=== PATIENT | female | born 1950 | race Caucasian/White ===

== ENCOUNTER 2016-11-13 22:28 | Emergency (ER) | payer MEDICARE ==
[2016-11-13] MEDS ORDERED: DECADRON 10MG INJ. IV ONE (22:33)
[2016-11-13] MEDS ORDERED: EPINEPHRINE 1:1000 1 ML AMP ONE (22:34)
[2016-11-13] MEDS ORDERED: DECADRON 10MG INJ. ONE ×2 (22:37→22:38)
[2016-11-13] MEDS ORDERED: BUMEX 1 MG ONE (22:42)
[2016-11-13] MEDS ORDERED: Sodium Chloride 0.9% 1000 ML 1,000 ML ONE (22:42)
[2016-11-13] MEDS ORDERED: Sodium Chloride 0.9% 1000 ML 1,000 ML IV SCH (22:45)
[2016-11-13] MEDS ORDERED: Cardizem IV 50 MG/10 ML IV ONE ×2 (22:45→22:53)
[2016-11-13] MEDS ORDERED: BUMEX 1 MG IV STA (22:45)
[2016-11-13] MEDS ORDERED: CARDIZEM DRIP 100 MG/100 ML D5W 100 ML IV ONE (22:50)
[2016-11-13 22:55] LABS: Mean Cell Volume 89.5 fl (78-100); Mean Corpuscular Hemoglobin 29.7 pg (26-32); Mean Platelet Volume 12.2 fl (6-9.5); Platelet Count 261 K/mm3 (150-450); Red Blood Count 4.78 M/mm3 (4.1-5.4); Red Cell Distribution Width 13.1 % (11.5-14.0); White Blood Count 17.8 K/mm3 (4.0-10.5)
[2016-11-13] MEDS ORDERED: DUONEB 0.5-3 MG/3 ml Neb IH ONE ×4 (22:57→23:44)
[2016-11-13] MEDS ORDERED: CARDIZEM DRIP 100 MG/100 ML D5W 100 ML IV SCH (23:00)
--- NOTE | 2016-11-13 23:02 | ERPHSYRPT ---
- History of Present Illness Time Seen by Provider: 11/13/16 22:32 Source: patient Exam Limitations: clinical condition Patient Subjective Stated Complaint: pt states she thinks she is having a reaction to new medication and is short of breath and heart is beating fast. Triage Nursing Assessment: pt alert and oriented, very anxious. pt pale and diaphoretic. Physician History: PATIENT WITH HISTORY OR HYPERTENSION AND CONGESTIVE HEART FAILURE COMPLAINS OF ACUTE OF DYSPNEA, AND PRODUCTIVE COUGH OVER THE PAST 2 HOURS. PATIENT ALSO COMPLAINS OF THROAT TIGHTNESS. DENIES ITCHING, RASH OR HIVES. PATIENT THINKS SHE MAY HAVE HAD A REACTION TO HER ANTIBIOTIC. HAS TRANSIENT CHEST PRESSURE EARLIER TODAY. DENIES FEVER OR CHILLS Timing/Duration: today Severity of Dyspnea-Max: severe Severity of Dyspnea-Current: severe Possible Cause: no prior episodes Modifying Factors: Improves With: coughing, deep breath, lying down Associated Symptoms: constant, cough Allergies/Adverse Reactions: No Known Drug Allergies Allergy (Unverified 11/13/16 22:54) Home Medications: Aspirin [Aspirin EC] 81 mg PO DAILY 11/13/16 [History] Carvedilol 6.25 mg [Coreg 6.25 MG] 6.25 mg PO BID 11/13/16 [History] Lisinopril 10 mg [Zestril 10 MG] 10 mg PO BID 11/13/16 [History] Potassium Chloride 10 Meq Tab* [Klor Con 10 MEQ] 10 meq PO DAILY 11/13/16 [ History] Hx Tetanus, Diphtheria Vaccination/Date Given: Yes Hx Influenza Vaccination/Date Given: No Hx Pneumococcal Vaccination/Date Given: No Immunizations Up to Date: Yes - Review of Systems Constitutional: No Fever, No Chills Eyes: No Symptoms Ears, Nose, & Throat: No Symptoms Respiratory: Cough, Dyspnea, Dyspnea on Exertion (ROMAN), Wheezing Cardiac: Palpitations, No Chest Pain, No Edema, No Syncope Abdominal/Gastrointestinal: No Symptoms, No Abdominal Pain, No Nausea, No Vomiting, No Diarrhea Genitourinary Symptoms: No Symptoms, No Dysuria Musculoskeletal: No Symptoms, No Back Pain, No Neck Pain Skin: No Symptoms, No Rash Neurological: No Dizziness, No Focal Weakness, No Sensory Changes Psychological: No Symptoms Endocrine: No Symptoms All Other Systems: Reviewed and Negative - Past Medical History Cardiac History: Congestive Heart Failure, Coronary Artery Disease, Myocardial Infarction (NE) Respiratory History: CHF - Past Surgical History Past Surgical History: Yes Cardiac: CABG Female Surgical History: Hysterectomy - Social History Smoking Status: Unknown if ever smoked Drug Use: none - Female History Hx Last Menstrual Period: post - Nursing Vital Signs Nursing Vital Signs: Initial Vital Signs Temperature 98.6 F Temperature Source Oral Pulse Rate 95 Respiratory Rate 19 Blood Pressure [] 149/111 Blood Pressure [] 158/121 - Physical Exam General Appearance: severe distress, alert, other (MARKED TACHYPNEA) Eye Exam: PERRL/EOMI Ears, Nose, Throat Exam: hearing grossly normal Neck Exam: supple, JVD Respiratory Exam: diminished breath sounds, wheezing (DIFFUSE WHEEZES AND RALES , DULLNESS TO PERCUSSION AT BASES) Cardiovascular/Chest Exam: normal heart sounds, regular rate/rhythm, normal peripheral pulses, JVD, tachycardia Abdominal/Gastrointestinal Exam: soft, normal bowel sounds, No tenderness, No distention, No mass Extremity Exam: non-tender, normal range of motion, normal inspection, no calf tenderness, no pedal edema Peripheral Pulses Exam: carotid (R): 2+, carotid (L): 2+, femoral (R): 2+, femoral (L): 2+, dorsalis-pedis (R): 2+, dorsalis-pedis (L): 2+ Neurologic Exam: alert, oriented x 3, cooperative, segment block layer II-XII nml as tested, sensation nml, No motor deficits Skin Exam: normal color, warm, No dry SpO2 Interpretation: hypoxic SpO2: 89 Oxygen Delivery: Non-rebreather - Course EKG Interpreted by Me: RATE, Sinus Tach, NORMAL AXIS, ST Elev (3RD EKG C/W INFERIOR STEMI), Non-specific ST Changes, Other (REPEAT EKG POST CARDIZEM BOLUS AND INFUSION SINUS TACHYCARDIA RATE 98, NORMAL AXIS, OCCASIONAL PVC,) - Radiology Exams Chest X-ray Interpretation: Interpreted by me (RIGHT MIDDLE LOBE, RIGHT LOWER LOBE CONSOLIDATION WITH SUPERIMPOSED PULMONARY EDEMA, ELEVATION LEFT HEMIDIAPHRAM) Ordered Tests: Active Orders 24 hr Category Date Time Status CO2 Monitoring STAT Care 11/13/16 22:34 Active Strapping Machine Tender STAT Care 11/13/16 22:34 Active EKG-ER Only STAT Care 11/13/16 22:34 Active IV Insertion STAT Care 11/13/16 22:34 Active Oxygen-ED Only NON-REBREATHER 100% Care 11/13/16 22:34 Active CHEST 1 VIEW (PORTABLE) Stat Exams 11/13/16 22:35 Taken ARTERIAL BLOOD GASES Urgent Lab 11/13/16 22:46 Ordered BLOOD CULTURE Stat Lab 11/13/16 22:54 Received CBC W DIFF Stat Lab 11/13/16 22:45 Completed CMP Stat Lab 11/13/16 22:45 Completed CULTURE,SPUTUM Stat Lab 11/13/16 22:46 Uncollected Lactic Acid Urgent Lab 11/13/16 22:34 Completed MAGNESIUM Stat Lab 11/13/16 22:45 Completed Manual Differential NC Stat Lab 11/13/16 22:45 Completed NT PRO BNP Stat Lab 11/13/16 22:45 Completed PROTIME WITH INR Stat Lab 11/13/16 22:45 Completed TROPONIN Stat Lab 11/13/16 22:45 Completed neb [Respiratory Nebulizer] STAT RT 11/13/16 23:21 Completed neb [Respiratory Nebulizer] STAT RT 11/13/16 23:42 Completed Medication Summary Generic Name Dose Route Start Last Admin Trade Name Freq PRN Reason Stop Dose Admin Sodium Chloride 1,000 mls @ 20 mls/hr 11/13/16 22:45 11/13/16 22:48 Sodium Chloride 0.9% 1000 Ml IV 12/13/16 22:44 20 mls/hr .Q24H ROVERTO Administration Diltiazem HCl 100 mls @ 5 mls/hr 11/13/16 23:00 11/13/16 22:51 Cardizem Drip 100 Mg/100 Ml D5w IV 12/13/16 22:59 5 mls/hr .Q20H ROVERTO Administration Protocol 5 MG/HR Cefepime HCl 2 g/ Dextrose 100 mls @ 200 mls/hr 11/14/16 22:56 11/13/16 23:36 IV 11/14/16 23:25 200 mls/hr STAT ONE Administration Discontinued Medications Generic Name Dose Route Start Last Admin Trade Name Freq PRN Reason Stop Dose Admin Albuterol/Ipratropium Confirm 11/13/16 22:57 Duoneb 0.5-3 Mg/3 Ml Neb Administered 11/13/16 22:58 Dose 3 ml IH .STK-MED ONE Albuterol/Ipratropium 3 ml 11/13/16 23:22 11/13/16 23:43 Duoneb 0.5-3 Mg/3 Ml Neb IH 11/13/16 23:23 3 ml STAT ONE Administration Albuterol/Ipratropium Confirm 11/13/16 23:42 Duoneb 0.5-3 Mg/3 Ml Neb Administered 11/13/16 23:43 Dose 3 ml IH .STK-MED ONE Albuterol/Ipratropium 3 ml 11/13/16 23:44 11/13/16 23:45 Duoneb 0.5-3 Mg/3 Ml Neb IH 11/13/16 23:45 3 ml STAT ONE Administration Aspirin 324 mg 11/13/16 23:22 11/13/16 23:36 Ecotrin 81 Mg PO 11/13/16 23:23 324 mg 1XONLY ONE Administration Aspirin Confirm 11/13/16 23:35 Baby Aspirin 81 Mg Chew Administered 11/13/16 23:36 Dose 324 mg .ROUTE .STK-MED ONE Bumetanide Confirm 11/13/16 22:42 Bumex 1 Mg Administered 11/13/16 22:43 Dose 2 mg .ROUTE .STK-MED ONE Bumetanide 2 mg 11/13/16 22:45 11/13/16 22:46 Bumex 1 Mg IV 11/13/16 22:46 2 mg STAT STA Administration Clopidogrel Bisulfate Confirm 11/14/16 00:00 Plavix 75 Mg Tablet Administered 11/14/16 00:01 Dose 300 mg .ROUTE .STK-MED ONE Dexamethasone Sodium Phosphate 20 mg 11/13/16 22:33 11/13/16 22:41 Decadron 10mg Inj. IV 11/13/16 22:34 20 mg STAT ONE Administration Dexamethasone Sodium Phosphate Confirm 11/13/16 22:37 Decadron 10mg Inj. Administered 11/13/16 22:38 Dose 10 mg .ROUTE .STK-MED ONE Dexamethasone Sodium Phosphate Confirm 11/13/16 22:38 Decadron 10mg Inj. Administered 11/13/16 22:39 Dose 10 mg .ROUTE .STK-MED ONE Diltiazem HCl 15 mg 11/13/16 22:45 11/13/16 22:51 Cardizem Iv 50 Mg/10 Ml IV 11/13/16 22:46 15 mg STAT ONE Administration Diltiazem HCl Confirm 11/13/16 22:53 Cardizem Iv 50 Mg/10 Ml Administered 11/13/16 22:54 Dose 50 mg IV .STK-MED ONE Epinephrine HCl Confirm 11/13/16 22:34 Epinephrine 1:1000 1 Ml Amp Administered 11/13/16 22:35 Dose 1 mg .ROUTE .STK-MED ONE Eptifibatide Confirm 11/14/16 00:10 Integrilin 2mg/Ml 10 Ml Injection Administered 11/14/16 00:11 Dose 20 mg IV .STK-MED ONE Heparin Sodium (Beef Lung) Confirm 11/14/16 00:04 Heparin 5000 Units/0.5 Ml (High Risk Med) Administered 11/14/16 00:05 Dose 5,000 unit .ROUTE .STK-MED ONE Sodium Chloride Confirm 11/13/16 22:42 Sodium Chloride 0.9% 1000 Ml Administered 11/13/16 22:43 Dose 1,000 mls @ ud .ROUTE .STK-MED ONE Diltiazem HCl Confirm 11/13/16 22:50 Cardizem Drip 100 Mg/100 Ml D5w Administered 11/13/16 22:51 Dose 100 mls @ ud IV .STK-MED ONE Eptifibatide Confirm 11/14/16 00:11 Integrilin 75 Mg/100 Ml Administered 11/14/16 00:12 Dose 100 mls @ ud IV .STK-MED ONE Lab/Rad Data: Laboratory Result Diagrams 11/13/16 22:45 11/13/16 22:45 Laboratory Results 11/13/16 11/13/16 11/13/16 Range/Units 22:45 22:45 22:45 WBC 17.8 H (4.0-10.5) K/mm3 RBC 4.78 (4.1-5.4) M/mm3 Hgb 14.2 (12.0-16.0) gm/dl Hct 42.8 (35-47) % MCV 89.5 (78-100) fl MCH 29.7 (26-32) pg MCHC 33.2 (32-36) g/dl RDW 13.1 (11.5-14.0) % Plt Count 261 (150-450) K/mm3 MPV 12.2 H (6-9.5) fl Segmented Neutrophils 72 H (36.0-66.0) % Lymphocytes (Manual) 24 (24-44) % Monocytes (Manual) 3 (0.0-12.0) % Atypical Lymphocytes 1 % INR 0.89 (0.8-3.0) Sodium 135 L (136-145) mEq/L Potassium 4.1 (3.5-5.1) mEq/L Chloride 98 (98-107) mEq/L Carbon Dioxide 23.6 (21-32) mEq/L Anion Gap 17.3 H (5-15) MEQ/L BUN 16 (9-20) mg/dL Creatinine 0.97 (0.55-1.30) mg/dl Estimated GFR > 60 ML/MIN Glucose 205 H (70-110) MG/DL Lactic Acid (0.4-2.0) Calcium 9.1 (8.5-10.1) mg/dL Magnesium 1.9 (1.8-2.4) mg/dL Total Bilirubin < 0.1 L (0.2-1.0) mg/dL AST 22 (15-37) U/L ALT 22 (12-78) U/L Alkaline Phosphatase 97 (46-116) U/L Troponin I 0.080 H* (0.000-0.056) ng/ml NT-Pro-B Natriuret Pep 4071 H (0-125) pg/ml Serum Total Protein 8.4 H (6.4-8.2) gm/dL Albumin 4.2 (3.4-5.0) g/dL 11/13/16 Range/Units 22:34 WBC (4.0-10.5) K/mm3 RBC (4.1-5.4) M/mm3 Hgb (12.0-16.0) gm/dl Hct (35-47) % MCV (78-100) fl MCH (26-32) pg MCHC (32-36) g/dl RDW (11.5-14.0) % Plt Count (150-450) K/mm3 MPV (6-9.5) fl Segmented Neutrophils (36.0-66.0) % Lymphocytes (Manual) (24-44) % Monocytes (Manual) (0.0-12.0) % Atypical Lymphocytes % INR (0.8-3.0) Sodium (136-145) mEq/L Potassium (3.5-5.1) mEq/L Chloride (98-107) mEq/L Carbon Dioxide (21-32) mEq/L Anion Gap (5-15) MEQ/L BUN (9-20) mg/dL Creatinine (0.55-1.30) mg/dl Estimated GFR ML/MIN Glucose (70-110) MG/DL Lactic Acid 3.5 H (0.4-2.0) Calcium (8.5-10.1) mg/dL Magnesium (1.8-2.4) mg/dL Total Bilirubin (0.2-1.0) mg/dL AST (15-37) U/L ALT (12-78) U/L Alkaline Phosphatase (46-116) U/L Troponin I (0.000-0.056) ng/ml NT-Pro-B Natriuret Pep (0-125) pg/ml Serum Total Protein (6.4-8.2) gm/dL Albumin (3.4-5.0) g/dL - Progress Progress: improved Progress Note: 11/13/16 23:15 IV FLUIDS AT NORMAL SALINE 20ML/HR, DECADRON 20MG IV, BUMEX 2MG IV, CARDIZEM BOLUS 15MG IV, INFUSION 10MG/HR OF BP 189/100, AND SINUS TACHYCARDIA RATE 150 11/14/16 00:21-PATIENT DIURESIS 1000 ML URINE THE 3RD EKG C/W ACUTE INFERIOR NE, PLACED ONT0 OPTIONB, PLAVIX 600MG ORALLY, HEPARIN 5000 UNITS IV, HEPARIN INFUSION 1000 UNITS/HR, INTEGRILLIN 10.8ML IVP, INTEGRILLIN INFUSION 7.2/HR DISCUSSED WITH DR GOYAL CLAIMS DIRECTOR,AT 2350 ACCEPTS TRANSFER TO [facility] 11/14/16 00:27 Discussed with : Other (DISCUSSED WITH DR BO AT 2350 ACCEPTS TRANSFER TO [facility]) - Departure Time of Disposition: 00:20 Departure Disposition: Transfer Clinical Impression: PNEUMONIA, EXACERBATION CONGESTIVE HEART FAILURE, ACUTE INFERIOR NE Condition: Stable Critical Care Time: Yes Critical Care Time(excluding separately billable procedures): ___ minutes (50) Referrals: BRITTNEY,CONNOR F [Primary Care Provider] -
[2016-11-13 23:08] LABS: INR 0.89 (0.8-3.0)
[2016-11-13] MEDS ORDERED: ECOTRIN 81 MG PO ONE (23:22)
[2016-11-13] MEDS: Maxipime 2 GM** 2 G in Dextrose 5%/Water IV Soln. 100ML PLUS BAG 100 ML IV ONE ×2 (23:26→23:36)
[2016-11-13 23:31] LABS: ALBUMIN 4.2 g/dL (3.4-5.0); ALKALINE PHOSPHATASE 97 U/L (46-116); ANION GAP 17.3 MEQ/L (5-15); BLOOD UREA NITROGEN 16 mg/dL (9-20); CHLORIDE 98 mEq/L (98-107); Carbon Dioxide 23.6 mEq/L (21-32); Glucose 205 MG/DL (70-110); MAGNESIUM 1.9 mg/dL (1.8-2.4); Potassium 4.1 mEq/L (3.5-5.1); SGOT/AST 22 U/L (15-37); SGPT/ALT 22 U/L (12-78); SODIUM 135 mEq/L (136-145); Total Protein 8.4 gm/dL (6.4-8.2)
[2016-11-13] MEDS ORDERED: BABY ASPIRIN 81 MG CHEW ONE (23:35)
[2016-11-13 23:45] LABS: BILIRUBIN,TOTAL < 0.1 mg/dL (0.2-1.0)
[2016-11-13 23:52] LABS: ATYPICAL LYMPHS 1 %; Total Cells Counted 100
[2016-11-14] MEDS ORDERED: PLAVIX 75 MG Tablet ONE
[2016-11-14] MEDS ORDERED: Heparin 5000 UNITS/0.5 ML (HIGH RISK MED) ONE (00:04)
[2016-11-14] MEDS ORDERED: INTEGRILIN IV ONE (00:10)
[2016-11-14] MEDS ORDERED: EPTIFIBATIDE 75 MG/100 ML IV ONE (00:11)
[2016-11-14 01:02] VITALS: BP 118/98; PULSE 118; O2SAT 99
[2016-11-14 06:24] LABS: Platelet Estimate NORMAL (NORMAL)
--- NOTE | 2016-11-14 07:32 | XRAY ---
Indication: Short of breath. Comparison: September 09, 2007. Portable chest demonstrates new diffuse bilateral interstitial alveolar opacities greatest in the right lower lung. Stable chronic left hemidiaphragm elevation with adjacent atelectasis. No large effusion. Heart is not enlarged and again demonstrates previous CABG surgery. Bony thorax intact. Impression: New diffuse bilateral interstitial alveolar opacities.
== END 2016-11-14 00:23 | disposition short-term general hospital (02) ==
LOC: ED 22:28
DX: J18.9 Pneumonia, unspecified organism (principal); I50.9 Heart failure, unspecified; I21.19 ST elevation (STEMI) myocardial infarction involving other coronary artery of inferior wall; I10 Essential (primary) hypertension; R06.00 Dyspnea, unspecified; R05 Cough; R07.89 Other chest pain; Z79.899 Other long term (current) drug therapy
CPT/HCPCS: 93041; 96374; 96365; 99291; 51702; 99292; 96360; 96361; 96375; 96367; 96368; 93005 ×2; 87040; 85610; 83880; 83735; 85025; 80053; 84484; 87631; 82803; 82375; 94640 ×2; 83605; A9270 ×4; 36000; 36415; 36600; 71010; 94002; 99285; J0171; J0692; J1100; J1327; J1644